=== PATIENT | male | born 1955 | race Caucasian/White ===

== ENCOUNTER 2019-09-12 08:07 | Outpatient (CLI) | payer BC, SELFPAY ==
[2019-09-12 09:03] LABS: Alanine Aminotransferase 19 U/L (4-50); Albumin Level 4.2 g/dL (3.5-5.1); Alkaline Phosphatase 85 U/L (38-126); Anion Gap 9.9 mmol/L (7-16); Aspartate Amino Transferase 24 U/L (17-59); Bilirubin,Total 0.5 mg/dL (0.2-1.3); Blood Urea Nitrogen 21 mg/dL (9-20); Carbon Dioxide 28 mmol/L (22-30); Chloride 106 mmol/L (98-107); Estimated Glomerular Filt Rate > 60; Glucose 96 mg/dL (75-110); Potassium 3.9 mmol/L (3.4-5.0); Sodium 140 mmol/L (137-145)
[2019-09-12 09:35] LABS: Vitamin D 25 Hydroxy 39.6 ng/mL
[2019-09-12 09:53] LABS: Free T4 Free Thyroxine 1.04 ng/mL (0.78-2.19)
[2019-09-18 12:03] LABS: Testosterone Total 189 ng/dL (250-1100)
== END 2019-09-12 08:08 | disposition home or self-care (01) ==
PROVIDERS: PCP Internal Medicine; Referring Provider Nurse Practitioner; Visit Provider Internal Medicine
DX: E03.9 Hypothyroidism, unspecified (principal); Z79.899 Other long term (current) drug therapy; E55.9 Vitamin D deficiency, unspecified
CPT/HCPCS: 36415; 80053; 82306; 84403; 84439; 84443

== ENCOUNTER 2020-01-28 07:54 | Outpatient (CLI) | payer BC, SELFPAY ==
[2020-01-28 08:39] LABS: Anion Gap 5 mmol/L (8-16); Blood Urea Nitrogen 21 mg/dL (9-20); Calcium 8.9 mg/dL (8.4-10.2); Carbon Dioxide 28 mmol/L (22-30); Chloride 107 mmol/L (98-107); Estimated Glomerular Filt Rate > 60; Glucose 103 mg/dL (75-110); Potassium 3.8 mmol/L (3.4-5.0); Sodium 140 mmol/L (137-145)
[2020-01-28 09:10] LABS: Prostate Specific Antigen 1.6 ng/mL (< OR = 4.0)
[2020-02-01 19:55] LABS: Testosterone Total 475 ng/dL (250-1100)
== END 2020-01-28 07:55 | disposition home or self-care (01) ==
PROVIDERS: PCP Internal Medicine; Visit Provider Internal Medicine
DX: E03.9 Hypothyroidism, unspecified (principal); Z13.6 Encounter for screening for cardiovascular disorders; Z12.5 Encounter for screening for malignant neoplasm of prostate; E29.1 Testicular hypofunction
CPT/HCPCS: 36415; 80048; 84153; 84403; 84443; G0103

== ENCOUNTER 2020-08-06 08:29 | Outpatient (CLI) | payer BC, SELFPAY ==
[2020-08-06 08:51] LABS: Basophils Percent Auto 0.2 % (0.2-1.2); Eosinophils Absolute Auto 0.2 K/mm3 (0-0.3); Eosinophils Percent Auto 3.8 % (0-4.4); Hematocrit 40.6 % (42.0-52.0); Hemoglobin 13.4 g/dL (14.0-18.0); Immature Granulocyte Absolute 0.01 K/mm3 (0.00-0.031); Immature Granulocyte Percent A 0.2 % (0-0.5); Lymphocytes Absolute Auto 1.32 K/mm3 (0.9-3.2); Mean Corpuscular Volume 87.9 fl (80-100); Monocytes Absolute Auto 0.4 K/mm3 (0.1-0.6); Monocytes Percent Auto 8.2 % (2.6-8.5); Neutrophils Absolute Auto 2.4 K/mm3 (1.3-6.7); Neutrophils Percent Auto 56.6 % (45.5-73.1); Platelet Count Result 138 k/mm3 (150-375); Red Blood Count 4.62 M/mm3 (4.6-6.20); Red Cell Distribution Width 12.6 % (11.5-14.5); White Blood Count 4.3 K/mm3 (4.5-10.0)
[2020-08-06 09:10] LABS: Alanine Aminotransferase 18 U/L (4-50); Albumin Level 4.2 g/dL (3.5-5.1); Alkaline Phosphatase 67 U/L (38-126); Anion Gap 6 mmol/L (8-16); Aspartate Amino Transferase 24 U/L (17-59); Bilirubin,Total 0.3 mg/dL (0.2-1.3); Blood Urea Nitrogen 26 mg/dL (9-20); Calcium 9.2 mg/dL (8.4-10.2); Carbon Dioxide 28 mmol/L (22-30); Chloride 109 mmol/L (98-107); Cholesterol 177 mg/dL (0-200); Estimated Glomerular Filt Rate > 60; Glucose 111 mg/dL (75-110); HDL Direct 48 mg/dL; Potassium 4.7 mmol/L (3.4-5.0); Sodium 143 mmol/L (137-145); Triglycerides 141 mg/dL (<150)
[2020-08-06 09:21] LABS: LDL Cholesterol Direct 94 mg/dL
[2020-08-06 09:35] LABS: Vitamin D 25 Hydroxy 30.8 ng/mL
== END 2020-08-06 08:30 | disposition home or self-care (01) ==
PROVIDERS: PCP Internal Medicine; Visit Provider Nurse Practitioner
DX: E55.9 Vitamin D deficiency, unspecified (principal); E78.5 Hyperlipidemia, unspecified; E03.9 Hypothyroidism, unspecified; D64.9 Anemia, unspecified
CPT/HCPCS: 36415; 80053; 80061; 82306; 84443; 85025

== ENCOUNTER 2021-03-27 07:46 | Outpatient (CLI) | payer BC, SELFPAY ==
[2021-03-27 08:19] LABS: Anion Gap 5 mmol/L (8-16); Blood Urea Nitrogen 25 mg/dL (9-20); Calcium 9.6 mg/dL (8.4-10.2); Carbon Dioxide 28 mmol/L (22-30); Chloride 109 mmol/L (98-107); Cholesterol 180 mg/dL (0-200); Estimated Glomerular Filt Rate > 60; Glucose 94 mg/dL (65-110); HDL Direct 41 mg/dL; Potassium 4.3 mmol/L (3.4-5.0); Sodium 142 mmol/L (137-145); Triglycerides 108 mg/dL (<150)
[2021-03-27 08:30] LABS: LDL Cholesterol Direct 102 mg/dL
[2021-03-27 08:50] LABS: Prostate Specific Antigen 2.5 ng/mL (< OR = 4.0)
[2021-03-27 08:51] LABS: Basophils Percent Auto 0.5 % (0.2-1.2); Eosinophils Absolute Auto 0.2 K/mm3 (0-0.3); Eosinophils Percent Auto 5.2 % (0-4.4); Hematocrit 42.4 % (42.0-52.0); Hemoglobin 14.2 g/dL (14.0-18.0); Immature Granulocyte Absolute 0.02 K/mm3 (0.00-0.031); Immature Granulocyte Percent A 0.5 % (0-0.5); Lymphocytes Percent Auto 42.3 % (18.3-44.2); Mean Corpuscular HGB Conc 33.5 g/dl (32-36); Mean Corpuscular Hemoglobin 29.1 pg (26-34); Mean Corpuscular Volume 86.9 fl (80-100); Mean Platelet Volume 9.8 fl (7.4-10.4); Monocytes Absolute Auto 0.3 K/mm3 (0.1-0.6); Neutrophils Absolute Auto 1.8 K/mm3 (1.3-6.7); Neutrophils Percent Auto 43.5 % (45.5-73.1); Platelet Count Result 176 k/mm3 (150-375); Red Blood Count 4.88 M/mm3 (4.6-6.20); Red Cell Distribution Width 12.3 % (11.5-14.5)
[2021-03-31 12:08] LABS: Testosterone Total 313 ng/dL (250-1100)
== END 2021-03-27 07:47 | disposition home or self-care (01) ==
PROVIDERS: PCP Internal Medicine; Visit Provider Internal Medicine
DX: E03.9 Hypothyroidism, unspecified (principal); E29.1 Testicular hypofunction; Z12.5 Encounter for screening for malignant neoplasm of prostate; D64.9 Anemia, unspecified; R55 Syncope and collapse
CPT/HCPCS: 36415; 80048; 80061; 84153; 84403; 84443; 85025; G0103

== ENCOUNTER 2021-06-26 16:05 | Outpatient (CLI) | payer BC, SELFPAY ==
--- NOTE | ~2021-06-26 | XR_ITS ---
EXAM: XR abdomen/kub 1V HISTORY: RT URETERAL STONE, PAIN X 1 WK, HX OF STONES, RT FLANK PAIN COMPARISON: CT abdomen pelvis performed on the same date. FINDINGS: Lung bases not imaged. Normal bowel gas pattern. No organomegaly. Punctate right upper pranay e calcification in prior CT is not radiographically visible. 4 mm calcification in the right pelvis t hat may represent the ureteral stone seen in the CT. Multiple pelvic phleboliths. Lumbar fusion hardw are. IMPRESSION: 4 mm distal right ureteral stone, large near the UVJ, seen better by concurrent CT. Reviewed, dictated and finalized at location K.
--- NOTE | ~2021-06-26 | CT_ITS ---
EXAMINATION: CT abdomen pelvis wo con DATE: 06/26/2021 16:40 INDICATION: Right ureteral stone TECHNIQUE: Computed tomography (CT) of the abdomen and pelvis was performed without intravenous contr ast. Automated exposure control and iterative reconstruction technique were employed. Exam dose: 310 .36 mGy-cm total exam DLP. COMPARISON: 06/26/2021 KUB FINDINGS: Minimal dependent atelectasis in the lower lobes. Normal heart size. No pericardial or pleural effusion. Possible cholelithiasis; ultrasound would be more sensitive and accurate for detection of cholelithia sis. Occasional hepatic and splenic calcified granulomas consistent with old granulomatous disease. No hep atic, splenic, pancreatic, and adrenal or renal space-occupying mass lesion is evident. Pinpoint upper pole nonobstructing right renal calculus. There is an approximately 2.7 x 4 mm calcifi cation in the region of the distal right ureter, possibly a distal right ureteral calcified calculus. There is however no hydroureteronephrosis on either side. If more definitive confirmation of right u reteral calculus is indicated, consider repeat CT abdomen pelvis examination with delayed views after intravenous contrast material administration, possibly follow-up post contrast KUB. There are multiple bilateral pelvic calcified phleboliths. Prostate calcifications. The urinary bladder is unremarkable. Normal appendix. No bowel obstruction or intraperitoneal free air. Normal caliber of the abdominal aorta. No intraperitoneal or retroperitoneal or pelvic mass lesion o r lymphadenopathy. Diffuse idiopathic skeletal hyperostosis of the thoracic spine. Status post lumbosacral anterior, interbody and posterior surgical fusion at L2-S1. IMPRESSION: Possible cholelithiasis; consider ultrasound of gallbladder Pinpoint upper pole nonobstructing right renal calculus 2.7 x 4 mm calcification in distal right ureteral area, without hydroureteronephrosis; post contrast CT may be helpful to definitively determine ureteral location Reviewed, dictated and finalized at Location A. Reviewed, dictated and finalized at location B. IMPRESSION: Possible cholelithiasis; consider ultrasound of gallbladder Pinpoint upper pole nonobstructing right renal calculus 2.7 x 4 mm calcification in distal right ureteral area, without hydroureteronep hrosis; post contrast CT may be helpful to definitively determine ureteral loca tion
== END 2021-06-26 16:06 | disposition home or self-care (01) ==
PROVIDERS: PCP Internal Medicine; Visit Provider Urology
DX: N20.1 Calculus of ureter (principal)
CPT/HCPCS: 74018; 74176

== ENCOUNTER 2021-07-02 01:25 | Day surgery (SDC) | payer BC, SELFPAY ==
--- NOTE | 2021-07-01 10:34 | PC.NURSE ---
Report to the Outpatient Waiting Room, entrance under the green pavilion located off [facility], at time _0830 on date _07/02/21 . OR Time: __1030 . - You and your visitor will be asked a series of questions to screen for COVID 19 for your protection. - Only one visitor is allowed at this time. - The patient visitor is requested to leave or wait in car when not with patient. - A mask is required within the hospital. Patients may have clear liquids (water, carbonated beverages, clear teas, apple juice) until 3 hours prior to surgery with a maximum of 20 ounces. - No food from midnight until time of surgery - Infants may have breast milk until 4 hours before surgery, infant formula 6 hours prior to surgery. - Children will be allowed to drink immediately following surgery. If applicable, please bring a bottle or sippy cup to assist with drinking. Juice, water, soda, and popsicles are readily available. For infants on formula, please bring formula the day of surgery. Pacifiers are allowed. Take the following medications with a SIP of water the morning of surgery: _LEVOTHYROXINE,BUPROPION Medications to discontinue per physician NONE Date to take last dose Please no make-up, nail thai, hairspray, perfume, deodorant, or body powder the day of surgery. No jewelry (including any body piercings) or valuables the day of surgery, leave them at home. Please take a shower or bath the night before, or the morning of, surgery with an antibacterial soap. Wear comfortable, loose fitting clothing. Children are encouraged to wear pajamas. - Jewelry must be removed prior to entering the operating room. Rings and piercings that are not removed may be cut off. - The hospital will not accept responsibility for valuables. - Please leave all valuables, including medications, at home the day of surgery. If you are going home after surgery, a licensed dinkey driver must drive you home. - NO public transportation without another adult. - We recommend that an adult stay with you for 24 hours following discharge. - We also recommend that you do not drive, make important decision, drink alcoholic beverages, or take any drugs that were not prescribed by your health care provider for at least 24 hours after your discharge time. For Pediatric surgeries, we recommend two adults accompany the child home (only one inside the building at this time). Follow any additional instructions given to you from your surgeon. If you or anyone in your household have experienced Covid symptoms in the past week, please notify your surgeon or the nurse liaison at the phone number below for possible testing. Telephone instructions given to _PATIENT and asked if any additional questions and then verbalized understanding. Patient advised to call surgeon office or pre surgery nurse liaison [phone] if any additional questions.
[2021-07-01 10:40] VITALS: BMI 30.8
[2021-07-02] VITALS (11 sets, daily range): BP systolic 95–156; BP diastolic 63–88; PULSE 42–66; RESP 10–18; TEMP 36.3–36.4; O2SAT 97–100; BMI 29.8
--- NOTE | ~2021-07-02 | XR_ITS ---
EXAMINATION: XR stent kub - surgery DATE: 07/02/2021 10:18 INDICATION: Right internal ureteral stent placement TECHNIQUE: Fluoroscopic images from a right internal ureteral stent placement are submitted for elizabeth jones 23 seconds of fluoroscopy time. 4 fluoroscopic images FINDINGS: There is a right double-J internal ureteral stent projecting in expected position, with proximal [place] loop at the level of the renal pelvis and distal loop in the pelvis within the bladder lumen. IMPRESSION: 1. Right internal ureteral stent placement. Please refer to real-time procedural findings for terrie loo. Reviewed, dictated and finalized at location A. IMPRESSION: 1. Right internal ureteral stent placement. Please refer to real-time procedu ral findings for details.
--- NOTE | 2021-07-02 08:36 | WPDANESEPPF ---
Anes - Initial Pre Proc Eval Procedure: Operation Date: 07/02/21 09:30 Proposed Procedures p Cystoscopy, Right Ureteroscopy, Right Stone Extraction, Possible Right Retrograde Pyelogram, Possible Right Stent Placement, Possible Laser Lithotripsy - Prince Gonsalves MD Date/Time: 07/02/21 08:36 Surgeon: Prince Gonsalves MD Pre Op Diagnosis: Rt Ureteral Stent Patient Data Age: 65 Gender: M Height: 1.78 m Weight: 97.55 kg Allergies Allergy/AdvReac Type Severity Reaction Status Date / Time No Known Allergies Allergy Mild Verified 07/01/21 10:24 Home Medications Medication Instructions Recorded Confirmed Type bupropion HCl 300 mg 24 hr tablet, See Rx Instructions .ROUTE 08/10/20 07/01/21 Rx extended release .COMPLEX #90 tablet levothyroxine 88 mcg tablet 88 mcg PO DAILY #90 tablet 08/10/20 07/01/21 Rx testosterone 20.25 mg/1.25 gram 3 pump TOPICAL DAILY #225 g 01/18/21 07/01/21 Rx (1.62 %) transdermal gel pump hydrocodone 10 mg-acetaminophen See Rx Instructions PO DAILY PRN 04/17/21 07/01/21 Rx 325 mg tablet #30 tablet zolpidem 10 mg tablet 10 mg PO QHS PRN #90 tablet 04/17/21 07/01/21 Rx alprazolam 1 mg PO PRN PRN 07/01/21 07/01/21 History sildenafil 100 mg PO PRN PRN 07/01/21 07/01/21 History Patient hx anesthesia problems: none Family hx anesthesia problems: none Results Review: All pre-operative results and documents have been reviewed as part of the pre-operative evaluation. [facility] Past Medical History Medical History Erectile dysfunction Hypogonadism in male Right hand pain Syncope Surgical History Surgical History History of lumbar surgery Family History Family History Sibling Family history of bipolar disorder Patient's sister is in good health Father Patient's father is in good health Mother Family history of smoking Social History Social History Smoking status: Never smoker Second hand tobacco smoke exposure: Yes Alcohol intake: current Alcohol use details: 5 DRINKS PER MONTH Substance use: never Substance use type: does not use Living arrangements: with family Gender identity (if verbalized by the patient): Male Spiritual care concerns: No Anes - Eval Final PreProcedure Day of Procedure 07/02/21 08:36 Patient weight: obese Heart: regular rate and rhythm Airway: Mallampati scale class II Neurological: alert and oriented Last oral intake: >/= 8 hours ASA classification: III Emergent: no Anesthetic plan: proceed Anesthesia type and monitoring: general LMA and standard monitoring Results Review: All pre-operative results and documents have been reviewed as part of the pre-operative evaluation. Informed Consent: The patient's anesthetic plan and its attendant risks and benefits were discussed with the patient/family/POA. Questions were solicited and answers provided to the satisfaction of the patient/family/POA.
[2021-07-02] MEDS: LACTATED RINGERS 1,000 ML 30 ML IV CONT (08:54)
--- NOTE | 2021-07-02 09:25 | WPDHPUPDATE1 ---
History and Physical Update Update Date/Time: 07/02/21 09:25 History and Physical has been reviewed, including an updated exam of the patient. There are NO changes in the patient's condition. Risks, benefits, and alternatives have been discussed and questions answered. Patient agrees to proceed with procedure. Proceed with cystoscopy right retrograde pyelogram, right ureteroscopy with stone extraction, possible laser, stent placement
[2021-07-02] MEDS: ceFAZolin 2 GM/D5W 50 ML 2 GM/50 ML BAG IVPB (09:46)
--- NOTE | 2021-07-02 10:19 | PM.IMHP ---
H&P: HPI History of Present Illness Date/Time: 07/02/21 10:19 Chief Complaint: 4-5 mm distal right ureteral calculus Narrative: 65-year-old male who has failed conservative management of a distal right ureteral stone measuring 4-5 mm. He is here for definitive therapy with cystoscopy, right ureteroscopy with stone extraction possible stent placement Review of Systems Review of Systems: All systems reviewed & are unremarkable except as noted in HPI and below PMFSH Past Medical History Medical History Erectile dysfunction Hypogonadism in male Right hand pain Syncope Surgical History Surgical History History of lumbar surgery Family History Family History Sibling Family history of bipolar disorder Patient's sister is in good health Father Patient's father is in good health Mother Family history of smoking Social History Social History Smoking status: Never smoker Second hand tobacco smoke exposure: Yes Alcohol intake: current Alcohol use details: 5 DRINKS PER MONTH Substance use: never Substance use type: does not use Living arrangements: with family Gender identity (if verbalized by the patient): Male Spiritual care concerns: No Meds Home Medications and Allergies Home Medications Medication Instructions Recorded Confirmed Type bupropion HCl 300 mg 24 hr tablet, See Rx Instructions .ROUTE 08/10/20 07/01/21 Rx extended release .COMPLEX #90 tablet levothyroxine 88 mcg tablet 88 mcg PO DAILY #90 tablet 08/10/20 07/01/21 Rx testosterone 20.25 mg/1.25 gram 3 pump TOPICAL DAILY #225 g 01/18/21 07/01/21 Rx (1.62 %) transdermal gel pump hydrocodone 10 mg-acetaminophen See Rx Instructions PO DAILY PRN 04/17/21 07/01/21 Rx 325 mg tablet #30 tablet zolpidem 10 mg tablet 10 mg PO QHS PRN #90 tablet 04/17/21 07/01/21 Rx alprazolam 1 mg PO PRN PRN 07/01/21 07/01/21 History sildenafil 100 mg PO PRN PRN 07/01/21 07/01/21 History Allergies Allergy/AdvReac Type Severity Reaction Status Date / Time No Known Allergies Allergy Mild Verified 07/01/21 10:24 Vital Signs Vital Signs - 24 hr 07/02/21 08:43 Temperature 36.3 C L Pulse Rate 66 Respiratory Rate 14 Blood Pressure 141/85 H Pulse Oximetry 98 Exam Const: General: cooperative Eyes: General: appearance normal, both eyes and all related structures Neck: Neck: normal visual inspection Chest: Chest palpation & inspection: normal inspection of the chest Resp: Effort & Inspection: normal respiratory effort Cardio: Rate: regular rate Rhythm: regular rhythm GI: Inspection: normal to inspection Assessment and Plan Assessment and plan (1) Right ureteral calculus: Code(s): N20.1 - Calculus of ureter Status: Acute Assessment and Plan: Plan for cystoscopy, right ureteroscopy with stone extraction, right retrograde pyelogram, right ureteral stent placement
--- NOTE | 2021-07-02 10:21 | P.OP_ITS ---
Procedure Note - Detailed Date of Procedure 07/02/21 Pre-op Diagnosis Right ureteral calculus 4-5 mm Post-op Diagnosis Same Procedure Performed Cystoscopy, right ureteroscopy with stone extraction, right ureteral stent placement 4.8 [place] contour Surgeon Prince Gonsalves MD Anesthesia General Description of Procedure Patient is taken the operative suite correctly identified. Once anesthesia was obtained was placed in dorsal lithotomy position and prepped and draped usual sterile fashion. Twenty-two [place]ar[place] scope inserted in the bladder. The right ureteral orifice was cannulated with a guidewire. The orifice was dilated with an 8/10 dilator. Rigid ureteral scope was inserted. The stone was localized. Escape basket was used to retrieve the stone. Reinspection of the ureter revealed no residual stones. 4.8 [place] contour stent was then placed with the proximal end coiled in the renal pelvis and the distal in the bladder. Pyelogram was not performed due to shortage of contrast. Patient is taken recovery stable condition. He will follow up in a week's time for stent removal with cystoscopy Drains Yes Packing No Pathology Yes Complications No immediate complications Condition Stable Disposition PACU
[2021-07-02] MEDS: ONDANSETRON INJ 4 MG/2 ML VIAL IV PUSH (11:03)
--- NOTE | 2021-07-02 11:04 | SUR.PHASEI ---
1102: Simple mask removed.
== END 2021-07-02 12:55 | disposition home or self-care (01) ==
PROVIDERS: PCP Internal Medicine; Visit Provider Urology
PROC: (CPT 52352; principal; 2021-07-02 09:30)
DX: N20.1 Calculus of ureter (principal); E29.1 Testicular hypofunction; Z79.890 Hormone replacement therapy; E66.9 Obesity, unspecified; Z68.29 Body mass index [BMI] 29.0-29.9, adult
CPT/HCPCS: 52332; 52352; 82365; 88300; A9270; C1769; C2617; J0690; J2250; J2405; J2704; J3010; J7120

== ENCOUNTER 2021-10-23 14:54 | Outpatient (CLI) | payer BC, SELFPAY ==
[2021-10-23 15:57] LABS: Alanine Aminotransferase 19 U/L (6-50); Albumin Level 4.2 g/dL (3.5-5.1); Alkaline Phosphatase 71 U/L (38-126); Anion Gap 10 mmol/L (8-16); Aspartate Amino Transferase 25 U/L (17-59); Bilirubin,Total 0.5 mg/dL (0.2-1.3); Blood Urea Nitrogen 15 mg/dL (9-20); Calcium 9.1 mg/dL (8.4-10.2); Carbon Dioxide 27 mmol/L (22-30); Chloride 104 mmol/L (98-107); Cholesterol 178 mg/dL (0-200); Estimated Glomerular Filt Rate > 60; Glucose 89 mg/dL (65-110); HDL Direct 50 mg/dL; Potassium 3.7 mmol/L (3.4-5.0); Sodium 141 mmol/L (137-145); Triglycerides 134 mg/dL (<150)
[2021-10-23 16:08] LABS: LDL Cholesterol Direct 92 mg/dL
[2021-10-28 13:37] LABS: Testosterone Total 417 ng/dL (250-1100)
== END 2021-10-23 14:55 | disposition home or self-care (01) ==
PROVIDERS: PCP Internal Medicine; Visit Provider Nurse Practitioner
DX: E29.1 Testicular hypofunction (principal); E03.9 Hypothyroidism, unspecified
CPT/HCPCS: 36415; 80053; 80061; 84403; 84443

== ENCOUNTER 2022-06-12 06:52 | Outpatient (CLI) | payer BC, SELFPAY ==
[2022-06-12 07:40] LABS: Alanine Aminotransferase 25 U/L (6-50); Albumin Level 4.2 g/dL (3.5-5.1); Alkaline Phosphatase 81 U/L (38-126); Anion Gap 5 mmol/L (8-16); Aspartate Amino Transferase 24 U/L (17-59); Bilirubin,Total 0.5 mg/dL (0.2-1.3); Blood Urea Nitrogen 18 mg/dL (9-20); Calcium 8.9 mg/dL (8.4-10.2); Carbon Dioxide 29 mmol/L (22-30); Chloride 106 mmol/L (98-107); Cholesterol 192 mg/dL (0-200); Estimated Glomerular Filt Rate > 60; Glucose 97 mg/dL (65-110); HDL Direct 46 mg/dL; Sodium 140 mmol/L (137-145); Triglycerides 107 mg/dL (<150)
[2022-06-12 07:51] LABS: LDL Cholesterol Direct 113 mg/dL
[2022-06-17 11:06] LABS: Testosterone Total 267 ng/dL (250-1100)
== END 2022-06-12 06:53 | disposition home or self-care (01) ==
LOC: ANHLAB 06:58
PROVIDERS: PCP Internal Medicine; Visit Provider Internal Medicine
DX: E03.9 Hypothyroidism, unspecified (principal); E29.1 Testicular hypofunction
CPT/HCPCS: 36415; 80053; 80061; 84403; 84443

== ENCOUNTER → 2022-06-17 07:49 | Outpatient (CLI) | payer BC, SELFPAY ==
--- NOTE | ~2022-06-17 | XR_ITS ---
EXAMINATION: XR lumbar spine 2-3V DATE: 06/17/2022 08:11 INDICATION: Low back pain, unspecified. TECHNIQUE: 3 views of lumbar spine were obtained. COMPARISON: CT abdomen and pelvis 06/26/2021 FINDINGS: Bone alignment is normal. There are changes of anterior fusion procedure from L2 to S1 with interbody devices. There are changes of posterior fusion procedure from L2 to L4 with pedicle screws . There is mild chronic anterior wedging of T12 and L1 vertebral bodies. There is mildly decreased di sc height at T12-L1 and moderately decreased disc height at L1-L2. There is multilevel moderate facet joint hypertrophy. IMPRESSION: 1. Moderate lumbar spondylosis. 2. Anterior fusion procedure from L2 to S1 and posterior fusion procedure from L2 to L4. Reviewed, dictated and finalized at location A.
== END ==
PROVIDERS: PCP Nurse Practitioner; Visit Provider Nurse Practitioner
DX: M47.896 Other spondylosis, lumbar region (principal); Z98.1 Arthrodesis status
CPT/HCPCS: 72100